=== PATIENT | female | born 1955 | race Caucasian/White ===

== ENCOUNTER 2017-06-24 05:39 | Day surgery (SDC) | payer OTHER ==
[~2017-06-24] VITALS: Ht 151.1 cm; Wt 75.0 kg
[~2017-06-24 05:39] MED LIST: A20IH1 IH; ACET-784 PO; ALBU8.5H8 IH; ASPI81 PO; ATOR10TA84 PO; FAMO20 PO; FLUO40CA PO; FURO20 PO; GABA-531 PO; LISI-662 PO; MOME13HF2 IH; MONT10TA21 PO; SENN-175 PO; TIOT4MIS2 PO; WARF3TAB29 PO
[2017-06-24] MEDS ORDERED: SODIUM CHLORIDE 0.9% 1,000 ML IV ONE ×2 (05:47→07:00)
[2017-06-24] MEDS ORDERED: MIDAZOLAM HCL 2 MG/2 ML VIAL ONE (08:15)
[2017-06-24] MEDS ORDERED: FentaNYL CITRATE-PF 100 MCG/2 ML VIAL ONE (08:16)
[2017-06-24] MEDS ORDERED: MethylPREDNISolone SOD SUCC 125 MG/2 ML VIAL IVP ONE (08:30)
[2017-06-24] MEDS ORDERED: MethylPREDNISolone SOD SUCC 125 MG/2 ML VIAL ONE (09:06)
[2017-06-24] MEDS ORDERED: LIDOCAINE HCL 4% 50 ML SOLUTION ONE (14:29)
[2017-06-24] MEDS ORDERED: ALBUTEROL SULFATE 2.5 MG/0.5 ML NEB SOLUTION NEB ONE (14:29)
[2017-06-24] MEDS ORDERED: LIDOCAINE HCL 2% 30 ML JELLY ONE (14:29)
[2017-06-24] MEDS ORDERED: BENZOCAINE 20% 50 MCG/SPRAY 57 GM ONE (14:29)
[2017-06-24] MEDS ORDERED: OXYGEN THERAPY IH SCH (20:00)
== END 2017-06-24 10:00 | disposition home or self-care (01) ==
LOC: SURGERY 05:39
PROVIDERS: ATTEND Internal Medicine Critical Care Medicine
DX: J38.4 Edema of larynx (principal); B37.0 Candidal stomatitis; J98.4 Other disorders of lung; J44.9 Chronic obstructive pulmonary disease, unspecified; I50.9 Heart failure, unspecified; I11.0 Hypertensive heart disease with heart failure; F32.9 Major depressive disorder, single episode, unspecified; E78.00 Pure hypercholesterolemia, unspecified; F12.21 Cannabis dependence, in remission; Z86.74 Personal history of sudden cardiac arrest; Z86.73 Personal history of transient ischemic attack (TIA), and cerebral infarction without residual deficits; Z87.01 Personal history of pneumonia (recurrent); Z88.3 Allergy status to other anti-infective agents; Z87.891 Personal history of nicotine dependence; Z72.89 Other problems related to lifestyle; Z95.5 Presence of coronary angioplasty implant and graft; Z79.82 Long term (current) use of aspirin; Z90.710 Acquired absence of both cervix and uterus; Z79.01 Long term (current) use of anticoagulants; Z79.899 Other long term (current) drug therapy
CPT/HCPCS: 31623; 31624; 71045; 87015; 87070; 87205; 87220; 88108; 88184; 88185; 88312; 93005; J2250; J2930; J3010; J7030